=== PATIENT | male | born 1970 | race Caucasian/White ===

== ENCOUNTER 2016-08-07 08:10 | Emergency (ER) | payer OTHER ==
[~2016-08-07] VITALS: Ht 172.7 cm; Wt 143.3 kg
[2016-08-07] MEDS ORDERED: LOSA100T (08:32)
[2016-08-07] MEDS ORDERED: VITA50003 (08:32)
[2016-08-07] MEDS ORDERED: ASPI81TA85 PO (08:32)
[2016-08-07] MEDS ORDERED: LOSARTAN (08:32)
[2016-08-07] MEDS ORDERED: METF1000 (08:32)
[2016-08-07] MEDS ORDERED: HYDR25T PO (08:32)
[2016-08-07] MEDS ORDERED: CETI10CH PO (08:32)
--- NOTE | 2016-08-07 10:16 | REP ---
Chest one-view HISTORY: Left shoulder pain Comparison: 12/06/2009 The lungs are clear. The heart is normal in size. The pulmonary vasculature is normal in appearance. Impression: No acute disease. Signed by Dickson Dee MD 08/07/2016 10:08 A
--- NOTE | 2016-08-07 10:24 | REP ---
CT Head without contrast HISTORY: Left side numbness COMPARISON: 06/13/2007 There is no intraparenchymal hemorrhage, acute infarct, mass or midline shift. The ventricular system is normal in appearance. There is no extra cerebral collection. There is no fracture. The visualized sinuses are clear. IMPRESSION: There is no intracranial lesion. Signed by Dickson Dee MD 08/07/2016 10:15 A
[2016-08-07 10:36] LABS: BASO % 0.8 % (0.0-1.0); EOS # 0.1 K/mm3 (0.0-0.50); EOS % 1.9 % (0.0-3.0); LARGE UNSTAINED CELL # 0.1 K/mm3 (0.0-0.4); LARGE UNSTAINED CELL % 1.3 % (0.0-4.0); LYMPH # 1.2 K/mm3 (1.5-4.5); LYMPH % 14.7 % (24.0-44.0); MEAN CORPUSCULAR HEMOGLOBIN 29.9 pg (27.0-33.0); MEAN CORPUSCULAR HGB CONC 34.2 g/dl (32.0-36.5); MEAN CORPUSCULAR VOLUME 87.4 fl (80.0-96.0); MONO # 0.3 K/mm3 (0.0-0.8); MONO % 4.2 % (0.0-5.0); NEUTROPHILS # 5.6 K/mm3 (1.8-7.7); NEUTROPHILS % 77.1 % (36.0-66.0); PLATELET COUNT, AUTOMATED 273 k/mm3 (150-450); RED CELL DISTRIBUTION WIDTH 12.5 % (11.5-14.5); WHITE BLOOD COUNT 7.2 K/mm3 (4.0-10.0)
[2016-08-07 10:44] LABS: ANION GAP 7 MEQ/L (8-16); BLOOD UREA NITROGEN 11 MG/DL (7-18); CALCIUM LEVEL 8.5 MG/DL (8.5-10.1); CARBON DIOXIDE LEVEL 26 MEQ/L (21-32); CHLORIDE LEVEL 103 MEQ/L (98-107); CREATININE FOR GFR 1.06 MG/DL (0.70-1.30); GLOMERULAR FILTRATION RATE > 60.0 (>60); GLUCOSE, FASTING 123 MG/DL (70-105); POTASSIUM SERUM 4.3 MEQ/L (3.5-5.1); SODIUM LEVEL 136 MEQ/L (136-145)
[2016-08-07 12:40] VITALS: BP 134/77
== END 2016-08-07 13:08 | disposition home or self-care (01) ==
LOC: M ED 09:52
DX: F41.0 Panic disorder [episodic paroxysmal anxiety] (principal); R20.9 Unspecified disturbances of skin sensation; E11.9 Type 2 diabetes mellitus without complications; I10 Essential (primary) hypertension; E66.9 Obesity, unspecified; M51.36 Other intervertebral disc degeneration, lumbar region; M50.30 Other cervical disc degeneration, unspecified cervical region; Z82.49 Family history of ischemic heart disease and other diseases of the circulatory system; Z79.82 Long term (current) use of aspirin; Z79.84 Long term (current) use of oral hypoglycemic drugs; Z79.899 Other long term (current) drug therapy

== ENCOUNTER → 2016-12-23 | Outpatient (CLI) | payer OTHER ==
[~2016-12-23] MED LIST: ASPI81TA85 PO; CETI10CH PO; HYDR-3363 PO; LOSA100T8; LOSARTAN; METF10004; VITA1CAP40
--- NOTE | 2016-12-25 09:07 | REP ---
MRI LUMBAR SPINE WITHOUT CONTRAST, 12/23/2016. Clinical History: Low back pain with some radicular symptoms on the right. Lumbar spondylosis. Comparison x-ray 03/13/2015. Technique: Sagittal T1, T2 and STIR images with axial T1-T2 sequences of the lumbar spine. At T11-12, there is no disc space narrowing, bulge or herniation. No visible central canal stenosis. Vertebral body heights in T12-S1 preserved. Discogenic endplate changes at the L2-3 level with vertebral body marrow signal, otherwise normal throughout. At T12-L1 and L1-2, there is no disc bulge or herniation and no spinal or foraminal stenosis. At L2-3, there is a mild broad-based disc bulge flattening the ventral thecal sac but not causing spinal or foraminal stenosis. At L3-4, there is no significant disc bulge or herniation and no spinal or foraminal stenosis. At L4-5, there is a large disc extrusion centrally and towards the right. It measures 11 mm transverse by vertical AP diameter of 7 mm. It displaces the thecal sac and abuts and displaces the L5 nerve root in the central canal, the foramina adequate. At L5-S1, there is no significant disc bulge or herniation and no spinal or foraminal stenosis. Some hypertrophic facet changes L4-5 and L5-S1. Impression: 1. Central/right paracentral disc extrusion at L4-5 abutting and displacing the right greater than left L5 nerve roots causing central canal stenosis but not foraminal encroachment. 2. At L2-3, mild broad-based disc bulge without spinal or foraminal stenosis. Other levels are grossly unremarkable. Signed by Johnny Samson MD 12/25/2016 03:40 P
== END ==
LOC: M RAD 08:04
PROVIDERS: ATTEND Orthopaedic Surgery
DX: M47.896 Other spondylosis, lumbar region (principal); M48.06 Spinal stenosis, lumbar region

== ENCOUNTER → 2018-01-22 | Outpatient (CLI) | payer OTHER ==
[2018-01-22 11:10] LABS: BASO % 0.5 % (0.0-1.0); EOS # 0.1 10^3/uL (0.0-0.50); EOS % 1.2 % (0.0-3.0); HEMATOCRIT 47.3 % (42.0-52.0); IMMATURE GRANULOCYTE % 0.4 % (0-3.0); LYMPH # 1.4 10^3/uL (1.5-4.5); LYMPH % 16.2 % (24.0-44.0); MEAN CORPUSCULAR HEMOGLOBIN 30.4 pg (27.0-33.0); MEAN CORPUSCULAR HGB CONC 33.8 g/dl (32.0-36.5); MEAN CORPUSCULAR VOLUME 89.9 fl (80.0-96.0); MONO # 0.6 10^3/uL (0.0-0.8); MONO % 7.5 % (0.0-5.0); NEUTROPHILS # 6.3 10^3/uL (1.8-7.7); NEUTROPHILS % 74.2 % (36.0-66.0); PLATELET COUNT, AUTOMATED 317 10^3/uL (150-450); RED BLOOD COUNT 5.26 10^6/uL (4.30-6.10); RED CELL DISTRIBUTION WIDTH 12.8 % (11.5-14.5); WHITE BLOOD COUNT 8.4 10^3/uL (4.0-10.0)
[2018-01-22 11:48] LABS: ESTIMATED AVERAGE GLUCOSE 108 MG/DL (60-110); HEMOGLOBIN A1c 5.4 %
[2018-01-22 11:57] LABS: ALBUMIN 3.9 GM/DL (3.2-5.2); ALBUMIN/GLOBULIN RATIO 1.11 (1.00-1.93); ALKALINE PHOSPHATASE 86 U/L (45-117); ALT/SGPT 32 U/L (12-78); ANION GAP 5 MEQ/L (8-16); AST/SGOT 19 U/L (7-37); BILIRUBIN,TOTAL 1.1 MG/DL (0.2-1.0); BLOOD UREA NITROGEN 17 MG/DL (7-18); CALCIUM LEVEL 9.5 MG/DL (8.5-10.1); CARBON DIOXIDE LEVEL 31 MEQ/L (21-32); CHLORIDE LEVEL 104 MEQ/L (98-107); CHOLESTEROL LEVEL 158 MG/DL (<200); CHOLESTEROL RISK RATIO 2.981 (<5); CREATININE FOR GFR 1.23 MG/DL (0.70-1.30); FREE T4 0.81 NG/DL (0.76-1.46); GLOMERULAR FILTRATION RATE > 60.0 (>60); GLUCOSE, FASTING 103 MG/DL (70-100); HDL CHOLESTEROL 53 MG/DL (>40); LDL CHOLESTEROL 87 MG/DL (<100); NON-HDL-C 105 MG/DL; POTASSIUM SERUM 5.3 MEQ/L (3.5-5.1); SODIUM LEVEL 140 MEQ/L (136-145); TOTAL PROTEIN 7.4 GM/DL (6.4-8.2); TRIGLYCERIDES LEVEL 88 MG/DL (<150)
[2018-01-22 12:07] LABS: TOTAL 25(OH) VITAMIN D 40.2 NG/ML (30.0-100.0)
== END ==
LOC: M LAB 10:17
DX: E55.9 Vitamin D deficiency, unspecified (principal); E11.9 Type 2 diabetes mellitus without complications; Z79.899 Other long term (current) drug therapy; E78.5 Hyperlipidemia, unspecified
CPT/HCPCS: 84443

== ENCOUNTER 2019-03-17 04:12 | Emergency (ER) | payer OTHER ==
[~2019-03-17] VITALS: Ht 172.7 cm; Wt 121.8 kg
[~2019-03-17 04:12] MED LIST changes: -VITA1CAP40; +VITA50005
[2019-03-17] MEDS ORDERED: KETOROLAC 60 MG/2 ML VIAL (J1885) IM ONE (04:30)
[2019-03-17] MEDS ORDERED: KETO10TAB PO (05:50)
[2019-03-17 05:55] VITALS: BP 147/92
--- NOTE | 2019-03-17 06:19 | REP ---
Clinical: Trauma. Fall. Technique: Frontal view of the chest with four views of the left hemithorax. Findings: Frontal view of the chest is unremarkable. No definite acute left rib fracture is appreciated although subtle nondisplaced injury along the posterior aspect of the left seventh rib cannot definitively be excluded. Impression: No definite acute rib fracture. Questionable left seventh rib injury. Electronically Signed by Gaurang Beltrán MD 03/17/2019 06:10 A
--- NOTE | 2019-03-17 07:29 | ECGEPIP ---
[facility] - ED Test Date: 2019-03-17 Pat Name: SHANNAN HIGGINS Department: Room: - Gender: Male [employer] Work[employer]: kenneth : 1970 Requested By: NURIA HAIDER Order Number: [id number] Reading MD: Henrietta Sullivan Measurements Intervals Turner Rate: 72 P: 46 CA: 161 QRS: 46 QRSD: 93 T: 26 QT: 370 QTc: 405 Interpretive Statements SINUS RHYTHM similar to prior EKG 08/07/16 Electronically Signed on 03-17-2019 7:29:03 EST by Henrietta Sullivan
--- NOTE | 2019-03-17 13:36 | ED PDOC ---
Post-Departure Follow-Up miranda nina faxed formal report of ribs film for fu Wallace Burns MD Mar 17, 2019 13:36
== END 2019-03-17 05:56 | disposition home or self-care (01) ==
LOC: M ED 04:12
DX: S20.219A Contusion of unspecified front wall of thorax, initial encounter (principal); W22.8XXA Striking against or struck by other objects, initial encounter; Y92.9 Unspecified place or not applicable; Y93.89 Activity, other specified; Y99.9 Unspecified external cause status; E11.9 Type 2 diabetes mellitus without complications
CPT/HCPCS: 71101; 93005; 96372; 99284; J1885